=== PATIENT | male | born 1965 | race African-American/Black ===

== ENCOUNTER 2017-01-15 09:36 | Emergency (ER) | payer OTHER ==
[2017-02-02] MEDS ORDERED: NAPROXEN PO (14:02)
[2017-02-02] MEDS ORDERED: DIVALPROEX SOD500 M1 PO (14:03)
[2017-02-02] MEDS ORDERED: VITAMIN B2 PO (14:03)
[2017-02-02] MEDS ORDERED: TRAZODONE HCL100 MG PO (14:03)
[2017-02-02] MEDS ORDERED: NEURONTIN300 MG PO (14:03)
[2017-02-02] MEDS ORDERED: VOLTAREN75 MG PO (14:03)
== END 2017-01-15 11:53 | disposition home or self-care (01) ==
LOC: CED 09:36
DX: R51 Headache (principal)
CPT/HCPCS: 96372; 99283; J1100; J1885

== ENCOUNTER 2017-01-23 07:53 | Emergency (ER) | payer OTHER ==
[2017-02-02] MEDS ORDERED: NAPROXEN PO (14:02)
[2017-02-02] MEDS ORDERED: VITAMIN B2 PO (14:03)
[2017-02-02] MEDS ORDERED: TRAZODONE HCL100 MG PO (14:03)
[2017-02-02] MEDS ORDERED: DIVALPROEX SOD500 M1 PO (14:03)
[2017-02-02] MEDS ORDERED: NEURONTIN300 MG PO (14:03)
[2017-02-02] MEDS ORDERED: VOLTAREN75 MG PO (14:03)
== END 2017-01-23 08:29 | disposition home or self-care (01) ==
LOC: CED 07:53
DX: M54.41 Lumbago with sciatica, right side (principal); Z90.49 Acquired absence of other specified parts of digestive tract
CPT/HCPCS: 96372; 99283; J1885

== ENCOUNTER → 2017-01-31 | Outpatient (CLI) | payer OTHER ==
[~2017-01-31] MED LIST: DIVALPROEX SOD500 M1 PO; NAPROXEN PO; NEURONTIN300 MG PO; TRAZODONE HCL100 MG PO; VITAMIN B2 PO; VOLTAREN75 MG PO
== END | disposition home or self-care (01) ==
LOC: CSSDAY 14:47
DX: R51 Headache (principal); Z79.899 Other long term (current) drug therapy
CPT/HCPCS: 96365; 96367; 96374; 96375; J1100; J1110; J2550; J2765; J3475

== ENCOUNTER → 2017-02-01 | Outpatient (CLI) | payer OTHER | END | disposition home or self-care (01) | LOC: CSSDAY 13:34 | DX: R51 Headache (principal); Z79.899 Other long term (current) drug therapy | CPT/HCPCS: 96365; 96367; 96374; 96375; J1100; J2550; J3475 ==

== ENCOUNTER → 2017-02-02 | Outpatient (CLI) | payer OTHER | END | disposition home or self-care (01) | LOC: CSSDAY 13:39 | DX: R51 Headache (principal); Z79.899 Other long term (current) drug therapy | CPT/HCPCS: 96365; 96367; 96374; J1100; J2550; J3475 ==

== ENCOUNTER → 2017-02-05 | Outpatient (CLI) | payer OTHER | END | disposition home or self-care (01) | LOC: CSSDAY 15:05 | DX: R51 Headache (principal) | CPT/HCPCS: 96365; 96367; 96374; J1100; J2550; J3475 ==

== ENCOUNTER → 2017-02-06 | Outpatient (CLI) | payer OTHER | END | disposition home or self-care (01) | LOC: CSSDAY 14:52 | DX: R51 Headache (principal); Z79.899 Other long term (current) drug therapy | CPT/HCPCS: 96365; 96367; 96374; J1100; J2550; J3475 ==

== ENCOUNTER → 2017-02-20 | Outpatient (CLI) | payer OTHER ==
--- NOTE | ~2017-02-20 | MR17 ---
[facility] A Service of [facility] RADIOLOGY TEXT RESULTS PATIENT: DANGELO BURDEN LOCATION: [facility] : 67 UNIT #: [id number] AGE: [address]: ANA WOLFE APRN SEX: M ORDER DR: [id number] [facility] [address] [place], [place] [address] [id number] O MR#: [id number] Acc #: [id number] NAME: DANGELO BURDEN. : 1965 SEX: M STUDY DATE/TIME: 02/20/2017 17:03 UNIT: [facility] ROOM: STUDY DESCRIPTION: MR Brain WWo Contrast Attending Physician: Ana Wolfe Aprn Referring Physician: Ana Wolfe Aprn Ordering Physician: Ana Wolfe Aprn Primary Care Physician: Bonita Aguilar MRI CENTER REPORT This report is preliminary unless electronic signature is present. EXAM MRI of the brain with and without contrast dated 02/20/17 COMPARISON: MRI brain with and without contrast dated 1915. HISTORY Migraine headaches time 8 years. Patient has had past treatments which did not help. FINDINGS Multisequence multiplanar imaging of the brain was obtained with and without contrast. 13 mL of MultiHance was administered intravenously. Jaimes-white junction, basal ganglia, brain stem and cerebellar hemispheres do not demonstrate any significant abnormality. Age appropriate parenchymal volume is seen. Nonenhancing punctate 2 to 3 increased T2 signal lesions are noted in the subcortical white matter of the right frontal lobe. No acute stroke, enhancing mass, mass effect, midline shift or hydrocephalus. Post contrast series webber not demonstrate any significant abnormality. Mild nasal septal deviation is noted to the right. Paranasal sinuses do not demonstrate any significant abnormality. Minimal left and mild right mastoid mucosal thickening is seen. IMPRESSION 1. No significant intracranial abnormality is seen. 2. Punctate 2 hyperintense T2 signal lesions are noted in the subcortical white matter particularly in the right frontal lobe, stable in the last two years. Nonspecific. It could be related to minimal chronic microvascular ischemic change related to migraine. 3. Minimal left and mild right mastoid mucosal thickening. [facility] A Service of [facility] RADIOLOGY TEXT RESULTS PATIENT: DANGELO BURDEN [facility] UNIT #: [id number] AGE: [address]: ANA WOLFE APRN SEX: M ORDER DR: Dictated by... Rivas Marquez M.D. THIS IS AN ELECTRONICALLY VERIFIED REPORT Rivas Marquez M.D. at 02/22/2017 3:46 PM CPR/cmm TD: 02/21/2017 09:48 JOB #: [id number] MRI CENTER REPORT Page 1 of 1 COPY
== END | disposition home or self-care (01) ==
LOC: CMRI 16:31
DX: R51 Headache (principal); J34.89 Other specified disorders of nose and nasal sinuses; R90.82 White matter disease, unspecified
CPT/HCPCS: 70553; A9577

== ENCOUNTER 2017-04-27 08:01 | Emergency (ER) | payer OTHER ==
--- NOTE | ~2017-04-27 | CR72 ---
[facility] A Service of [facility] RADIOLOGY TEXT RESULTS PATIENT: DANGELO BURDEN LOCATION: [facility] : 67 UNIT #: [id number] AGE: [address]: Victor Manuel Melton MD SEX: M ORDER DR: [id number] [facility] [address] [place], [place] [address] [id number] E MR#: [id number] Acc #: [id number] NAME: DANGELO BURDEN. : 1965 SEX: M STUDY DATE/TIME: 04/27/2017 8:35 UNIT: [facility] ROOM: STUDY DESCRIPTION: CR Chest Single View Portable Attending Physician: Victor Manuel Melton M.D. Ordering Physician: Victor Manuel Melton M.D. Primary Care Physician: Bonita Aguilar MEDICAL IMAGING REPORT This report is preliminary unless electronic signature is present EXAM Portable chest. INDICATIONS Chest pain and shortness of breath since last night. No comparisons spine. There is low-volume inspiration. There is some mild atelectasis or consolidation within the left base. Heart size normal. Visualized osseous structures are unremarkable. IMPRESSION Low-volume inspiration with mild atelectasis or consolidation in the left base. Dictated by... Parviz Jones M.D. THIS IS AN ELECTRONICALLY VERIFIED REPORT Parviz Jones M.D. at 04/30/2017 7:31 AM CALIN/ryan TD: 04/27/2017 11:51 JOB #: [id number] MEDICAL IMAGING REPORT Page 1 of 1 COPY
--- NOTE | ~2017-04-27 | EKG ---
PATIENT: DANGELO BURDEN UNIT #: [id number] Ventricular Rate: 82 BPM Atrial Rate: 82 BPM P-R Interval: 190 ms QRS Duration: 80 ms Q-T Interval: 388 ms QTC Calculation(Bezet): 453 ms P Granger: 60 degrees Calculated R Granger: -35 degrees Calculated T Granger: 21 degrees Diagnosis Line: Normal sinus rhythm Diagnosis Line: Left axis deviation Diagnosis Line: Minimal voltage criteria for LVH, may be normal Diagnosis Line: variant Diagnosis Line: Abnormal ECG Diagnosis Line: No previous ECGs available Diagnosis Line: Confirmed by ALANA LAWTON MD ([id number]) on Diagnosis Line: 04/28/2017 2:52:40 PM INTERPRETING MD: YENNY
[2017-04-27 08:39] LABS: POC - CKMB <1.0 ng/mL (0.0-7.9); POC - TROPONIN <0.05 ng/mL (<=0.05)
[2017-04-27 08:39] LABS: BASOPHIL% 0.4 % (0-2.5); EOSINOPHIL# 0.2 X10e3 (0-0.7); EOSINOPHIL% 3.3 % (0.0-7.0); HEMOGLOBIN 14.2 gm/dL (13.0-16.0); LYMPHOCYTE# 1.3 X10e3 (1.0-3.5); LYMPHOCYTE% 26.3 % (17.0-45.0); MEAN CELL VOLUME 94.2 FL (83-96); MEAN CORPUSCULAR HEMOGLOBIN 31.2 PG (28-34); MEAN CORPUSCULAR HGB CONC 33.1 g/dL (30-36); MEAN PLATELET VOLUME 8.3 FL (6.5-11.5); MONOCYTE# 0.4 X10e3 (0-1.0); PLATELET COUNT 163 X10e3 (140-420); RED BLOOD COUNT 4.57 X10e (3.90-5.60); RED CELL DISTRIBUTION WIDTH 15.3 % (11.0-15.5); WHITE BLOOD COUNT 4.9 X10e3 (4.0-10.5)
[2017-04-27 08:42] LABS: DIFF IND NO
[2017-04-27 09:02] LABS: ALBUMIN SERUM 3.3 g/dL (3.5-5.0); BILIRUBIN, DIRECT 0.1 mg/dL (0.0-0.2); BILIRUBIN,INDIRECT 0.3 mg/dL (0.0-0.9); BILIRUBIN,TOTAL 0.4 mg/dL (0.2-2.0); BUN/CREATININE RATIO 11.66; CALCIUM SERUM 8.3 mg/dL (8.4-10.2); CREATININE SERUM 1.2 mg/dL (0.6-1.4); GLOM FILT RATE Estimated 81.3 mL/min (>60); POTASSIUM 3.5 mmol/L (3.5-5.1); PROTEIN TOTAL SERUM 5.9 g/dL (6.0-8.3)
[2017-04-27 10:06] LABS: POC - CKMB <1.0 ng/mL (0.0-7.9); POC - TROPONIN <0.05 ng/mL (<=0.05)
== END 2017-04-27 11:18 | disposition home or self-care (01) ==
LOC: CED 08:01
PROVIDERS: Emergency Medicine
DX: R07.89 Other chest pain (principal); J18.9 Pneumonia, unspecified organism; F17.200 Nicotine dependence, unspecified, uncomplicated; Z90.89 Acquired absence of other organs
CPT/HCPCS: 36415; 71010; 80048; 80076; 82553; 84484; 85025; 93005; 99285

== ENCOUNTER 2017-06-24 12:46 | Emergency (ER) | payer OTHER ==
[~2017-06-24] VITALS: Ht 177.8 cm; Wt 98.0 kg
== END 2017-06-24 15:10 | disposition home or self-care (01) ==
LOC: CFTX 12:46 → CED 12:46 → CFTX 14:06
DX: L03.012 Cellulitis of left finger (principal); R03.0 Elevated blood-pressure reading, without diagnosis of hypertension; G43.909 Migraine, unspecified, not intractable, without status migrainosus; F17.200 Nicotine dependence, unspecified, uncomplicated
CPT/HCPCS: 10060; 99283

== ENCOUNTER 2017-06-27 20:46 | Emergency (ER) | payer OTHER | END 2017-06-27 22:50 | disposition home or self-care (01) | LOC: CFTX 20:46 → CED 20:46 → CFTX 21:21 | DX: L03.012 Cellulitis of left finger (principal); F17.200 Nicotine dependence, unspecified, uncomplicated; Z79.899 Other long term (current) drug therapy | CPT/HCPCS: 10060; 99283 ==